=== PATIENT | male | born 1980 | race American Indian/Alaskan Native ===

== ENCOUNTER 2022-01-28 16:52 | Emergency (ER) | payer BC, MEDICAID ==
[2022-01-28] MEDS ORDERED: Lidocaine 1% 5 ML VIAL INJECT ONE (17:05)
[2022-01-28] MEDS ORDERED: Bacitracin/Neomycin/Polymyxin B Oint 0.9 GM U/D Packet TOP ONE (17:06)
[2022-01-28] MEDS ORDERED: Diphtheria,Pertussis(Acell),Tetanus Vaccine 0.5 ML Syringe IM ONE (17:06)
[2022-01-28 17:45] VITALS: BP 132/87; PULSE 73
== END 2022-01-28 18:00 | disposition home or self-care (01) ==
LOC: CC.ED 16:52
DX: S61.317A Laceration without foreign body of left little finger with damage to nail, initial encounter (principal); S69.92XA Unspecified injury of left wrist, hand and finger(s), initial encounter; S60.10XA Contusion of unspecified finger with damage to nail, initial encounter; Z88.0 Allergy status to penicillin; Z79.899 Other long term (current) drug therapy; Z23 Encounter for immunization; W23.0XXA Caught, crushed, jammed, or pinched between moving objects, initial encounter
CPT/HCPCS: 12002; 73140-F4; 90471; 90715; 99283-25

== ENCOUNTER 2022-05-15 00:47 | Emergency (ER) | payer BC, MEDICAID ==
[2022-05-15] MEDS ORDERED: Ketorolac 60 MG/2 ML SDV IM ONE (01:22)
[2022-05-15] MEDS ORDERED: Orphenadrine 60 MG/2 ML Inj IM ONE (01:23)
[2022-05-15] MEDS ORDERED: Take Home: Cyclobenzaprine 10 MG Tab, 4 Tab Pack PO ONE (01:24)
[2022-05-15 01:55] VITALS: BP 122/91; PULSE 92
== END 2022-05-15 01:44 | disposition home or self-care (01) ==
LOC: CC.ED 00:47
DX: S39.012A Strain of muscle, fascia and tendon of lower back, initial encounter (principal); Z88.0 Allergy status to penicillin; X50.9XXA Other and unspecified overexertion or strenuous movements or postures, initial encounter
CPT/HCPCS: 96372; 99283; A9270-GY; J1885; J2360